=== PATIENT | female | born 1960 | race Caucasian/White ===

== ENCOUNTER 2022-06-18 17:38 | Emergency (ER) | payer OTHER ==
[~2022-06-18] VITALS: Ht 162.6 cm; Wt 72.1 kg
[2022-06-18 17:42] VITALS: BP 154/72
[2022-06-18] MEDS ORDERED: KETOROLAC 60 MG/2 ML VIAL IM ONE (17:45)
--- NOTE | 2022-06-18 17:59 | NUR ---
URINE SAMPLE COLLECTED AND WALKED TO LAB
--- NOTE | 2022-06-18 18:03 | NUR ---
62/F BIB DAUGHTER WITH C/O HEADACHE AND NAUSEA SINCE FRIDAY. PATIENT DENIES RECENT INJURY OR TRAUMA, STATES PAIN CAME ON SUDDENLY AND HAS BEEN CONSTANT, PATIENT REPORTS TAKING MOTRIN WITH MILD RELIEF. DENIES PHOTOPHOBIA, DIZZINESS OR VISION CHANGES. PATIENT AOX4 SPEAKING IN FULL CLEAR SENTENCES.
[2022-06-18 18:14] LABS: APPEARANCE,URINE CLEAR (CLEAR); BILIRUBIN,URINE NEGATIVE (NEGATIVE); BLOOD, URINE NEGATIVE (NEGATIVE); COLOR,URINE YELLOW (YELLOW); LEUKOCYTE ESTERASE ,URINE NEGATIVE (NEGATIVE); NITRITE, URINE NEGATIVE (NEGATIVE); PH,URINE 7.5 (5.0-9.0); UGLUCOSE NEGATIVE (NEGATIVE)
[2022-06-18] MEDS ORDERED: ONDA8TAB87 PO (18:44)
[2022-06-18] MEDS ORDERED: IBUP-2213 PO (18:44)
[2022-06-18] MEDS ORDERED: ACET-8905 PO (18:44)
[2022-06-18] MEDS ORDERED: MECL-303 PO (18:44)
--- NOTE | 2022-06-18 18:49 | NUR ---
Patient discharged with v/s stable. Written and verbal after care instructions ABOUT NAUSEA, GEN ESTRELLA, DIZZINESS given and explained. Patient alert, oriented and verbalized understanding of instructions. Ambulatory with steady gait. All questions addressed prior to discharge. ID band removed. Patient advised to follow up with PMD. Rx of HYDROCODONE 5-325, MOTRIN, ANTIVERT, ZOFRAN given. Patient educated on indication of medication including possible reaction and side effects. Opportunity to ask questions provided and answered.
== END 2022-06-18 18:49 | disposition home or self-care (01) ==
LOC: MED 17:38
DX: R42 Dizziness and giddiness (principal); R51.9 Headache, unspecified; M54.2 Cervicalgia; R11.0 Nausea; I10 Essential (primary) hypertension
CPT/HCPCS: 81003; 96372; 99283; J1885